=== PATIENT | female | born 1985 ===

== ENCOUNTER 2018-04-27 16:55 | Emergency (ER) | payer SELFPAY ==
[2018-04-27 16:56] VITALS: BMI 24.1
[2018-04-27 17:01] VITALS: TEMP 98.2
[2018-04-27] MEDS ORDERED: Sodium Chloride 0.9% 1,000 ML IV ONE (17:20)
[2018-04-27] MEDS ORDERED: Iohexol 240 (50 ml) PO ONE (17:21)
--- NOTE | 2018-04-27 17:24 | C.PDOC ---
History Of Present Illness 32 y/o female comes in complaining of lower abdominal discomfort for the last week with moderate pain x2 days that radiates to lower back. Patient does not know if she is . Patient has a history of colon cancer 2012 with colon resection, no radiation. Patient denies any other symptoms. Time Seen by Provider: 04/27/18 17:11 Chief Complaint (Nursing): Abdominal Pain History Per: Patient History/Exam Limitations: no limitations Onset/Duration Of Symptoms: Days Current Symptoms Are (Timing): Still Present Past Medical History Reviewed: Historical Data, Nursing Documentation, Vital Signs Vital Signs: Last Vital Signs Temp 98.2 F 04/27/18 16:59 Pulse 67 04/27/18 16:59 Resp 18 04/27/18 16:59 BP 98/62 L 04/27/18 16:59 Pulse Ox 100 04/27/18 16:59 - Medical History PMH: Hypercholesterolemia Denies: Chronic Kidney Disease - [facility] Procedures CLOSED ENDOSCOPIC BIOPSY OF LARGE INTESTINE (03/04/14) Family History: States: No Known Family Hx - Social History Hx Alcohol Use: No Hx Substance Use: No Review Of Systems Except As Marked, All Systems Reviewed And Found Negative. Constitutional: Negative for: Fever, Chills Cardiovascular: Negative for: Chest Pain Respiratory: Negative for: Shortness of Breath Gastrointestinal: Positive for: Other (Abdominal discomfort radiating to lower back). Negative for: Vomiting Skin: Negative for: Rash Physical Exam - Physical Exam Appears: Non-toxic, No Acute Distress Skin: Warm, Dry Head: Atraumatic, Normacephalic Eye(s): bilateral: Normal Inspection Oral Mucosa: Moist Neck: Supple Chest: Symmetrical Cardiovascular: Rhythm Regular, No Murmur Respiratory: Normal Breath Sounds, No Rales, No Rhonchi, No Wheezing Gastrointestinal/Abdominal: Soft, No Tenderness, Other (Midline surgical scar) Extremity: Bilateral: Normal Color And Temperature, Normal ROM Neurological/Psych: Oriented x3, Normal Speech ED Course And Treatment - Laboratory Results Result Diagrams: 04/27/18 17:34 04/27/18 17:34 Lab Interpretation: Normal (ua neg.) Urine POC: Negative O2 Sat by Pulse Oximetry: 100 (RA) Pulse Ox Interpretation: Normal Reevaluation Time: 20:00 Reassessment Condition: Improved Medical Decision Making Medical Decision Making: Plan: --Abd/Pel CT --Bloodwork --UA --Omnipaque PO --IV fluids --Toradol 30 mg IV acute on chronic constipation no s/s of recurrent colon CA Disposition Doctor Will See Patient In The: Office Counseled Patient/Family Regarding: Studies Performed, Diagnosis - Disposition Disposition: HOME/ ROUTINE Disposition Time: 20:00 Condition: GOOD Forms: [facility] (Salvadorean) - Clinical Impression Clinical Impression: Colicky abdominal pain - Scribe Statement The provider has reviewed the documentation as recorded by the [place] Provider Attestation: All medical record entries made by the Adrianaibrobel were at my direction and personally dictated by me. I have reviewed the chart and agree that the record accurately reflects my personal performance of the history, physical exam, medical decision making, and the department course for this patient. I have also personally directed, reviewed, and agree with the discharge instructions and di sposition.
[2018-04-27 17:25] LABS: SQUAMOUS EPITHIAL 1 /hpf (0-5); URINE BILIRUBIN NEGATIVE (NEGATIVE); URINE BLOOD NEGATIVE (NEGATIVE); URINE CLARITY Clear (Clear); URINE COLOR Straw (YELLOW); URINE GLUCOSE (UA) NORMAL (Normal); URINE LEUKOCYTE ESTERASE NEG Leu/uL (Negative); URINE PROTEIN NEGATIVE (NEGATIVE); URINE UROBILINOGEN NORMAL mg/dL (0.2-1.0)
[2018-04-27 17:29] LABS: HCG,QUALITATIVE URINE NEGATIVE (NEGATIVE)
[2018-04-27] MEDS ORDERED: Iohexol 240 (50 ml) ONE (17:34)
[2018-04-27] MEDS ORDERED: Sodium Chloride 0.9% 1,000 ML ONE (17:35)
[2018-04-27 17:37] LABS: BASO # 0.1 K/uL (0.0-0.2); BASO % 0.6 % (0.0-2.0); EOS # 0.2 K/uL (0.0-0.7); EOS % 1.6 % (0.0-4.0); HEMOGLOBIN 14.1 g/dL (11.0-16.0); LYMPH # 3.4 K/uL (1.0-4.3); LYMPH % 31.4 % (20.0-40.0); MEAN CELL VOLUME 90.7 fL (81.0-99.0); MEAN CORPUSCULAR HEMOGLOBIN 31.4 pg (27.0-31.0); MEAN CORPUSCULAR HGB CONC 34.6 g/dL (33.0-37.0); MEAN PLATELET VOLUME 9.4 fL (7.2-11.7); MONO # 0.6 K/uL (0.0-0.8); MONO % 5.6 % (0.0-10.0); NEUT # 6.7 K/uL (1.8-7.0); NEUT % 60.8 % (50.0-75.0); RBC 4.49 Mil/uL (3.80-5.20); RED CELL DISTRIBUTION WIDTH 12.6 % (11.5-14.5); WHITE BLOOD COUNT 10.9 K/uL (4.8-10.8)
[2018-04-27 18:01] LABS: ALB/GLOB RATIO 1.7 (1.0-2.1); ALBUMIN 4.8 g/dL (3.5-5.0); ALT/SGPT 37 U/L (9-52); AST/SGOT 33 U/L (14-36); BLOOD UREA NITROGEN 10 mg/dL (7-17); GFR NON-AFRICAN AMERICAN > 60; LIPASE 64 U/L (23-300)
[2018-04-27] MEDS ORDERED: Iodixanol 320 MG/ML 100 ML BOTTLE IV ONE (18:22)
[2018-04-27 20:15] VITALS: BP 100/60; PULSE 70; RESP 14; O2SAT 98
--- NOTE | 2018-04-27 21:50 | CT ---
Date of service: 04/27/2018 PROCEDURE: CT Abdomen and Pelvis with contrast HISTORY: lower abdominal pain x 1 wk, h/o colon CA, neg scope 2015 COMPARISON: 12/27/2015. TECHNIQUE: CT scan of the abdomen and pelvis was performed after administration of intravenous contrast. Oral contrast was administered. Coronal and sagittal reformatted images were obtained. Contrast dose: 100 mL Visipaque 320 Radiation dose: Total exam DLP = 866.26 mGy-cm. This CT exam was performed using one or more of the following dose reduction techniques: Automated exposure control, adjustment of the mA and/or kV according to patient size, and/or use of iterative reconstruction technique. FINDINGS: LOWER THORAX: There is dependent atelectasis in the lung bases. LIVER: Normal in size with homogeneous enhancement. Fatty liver. No gross lesion or ductal dilatation. GALLBLADDER AND BILE DUCTS: Well distended. No calcified gallstones, wall thickening or pericholecystic fluid. PANCREAS: Normal in size with homogeneous enhancement. No gross lesion or ductal dilatation. SPLEEN: Normal in size and appearance. ADRENALS: No discrete nodule. KIDNEYS AND URETERS: Normal in size with homogeneous enhancement. No hydronephrosis. No solid mass. VASCULATURE: No aortic aneurysm. BOWEL: The small bowel loops are normal in caliber. Postsurgical changes in the cecum with partial right colon resection. There is large amount of stool in the transverse colon. No bowel obstruction. No bowel wall thickening or obstruction. APPENDIX: Normal appendix. PERITONEUM: No free fluid. No free air. LYMPH NODES: No enlarged lymph nodes. BLADDER: Well distended and normal in appearance. REPRODUCTIVE: The uterus is normal in size. BONES: No acute fracture. Within normal limits for the patient's age. OTHER FINDINGS: None. IMPRESSION: No acute abdominal or pelvic abnormality. Postsurgical changes in the cecum with partial right hemicolon resection. Large amount of stool in the transverse colon. Nonobstructive bowel-gas pattern. A preliminary report was provided by [employer].
== END 2018-04-27 20:16 | disposition home or self-care (01) ==
LOC: C.ER 16:55
DX: R10.84 Generalized abdominal pain (principal)
CPT/HCPCS: 74177; 80053; 81001; 83690; 84703; 85025; 96361; 96374; 99284; J1885; J7030; Q9966; Q9967

== ENCOUNTER 2018-06-07 11:35 | Emergency (ER) | payer OTHER ==
[2018-06-07 11:36] VITALS: BMI 24.1
[2018-06-07 12:04] VITALS: TEMP 98.4
[2018-06-07] MEDS ORDERED: Lidocaine 5% Patch TD STA (12:36)
[2018-06-07] MEDS ORDERED: Lidocaine 5% Patch TD ONE (12:58)
--- NOTE | 2018-06-07 13:32 | C.PDOC ---
History Of Present Illness 32 y/o female c/o left upper back pain x 3 days after lifting her 8 y/o 55 lb daughter to put her to bed, pt tasking ibuprofen 200 mg by mouth qid with no relief. Time Seen by Provider: 06/07/18 12:07 Chief Complaint (Nursing): Back Pain History Per: Patient History/Exam Limitations: no limitations Onset/Duration Of Symptoms: Days (3) Quality Of Discomfort: "Pain" (left upper back ) Associated Symptoms: denies: New Weakness, New Numbness Recent travel outside of the [place]: No Additional History Per: Patient Past Medical History Reviewed: Historical Data, Nursing Documentation, Vital Signs Vital Signs: Last Vital Signs Temp 98.4 F 06/07/18 12:00 Pulse 69 06/07/18 12:00 Resp 20 06/07/18 12:00 BP 105/85 06/07/18 12:00 Pulse Ox 99 06/07/18 12:00 - Medical History PMH: Hypercholesterolemia Denies: Chronic Kidney Disease Surgical History: No Surg Hx - [facility] Procedures CLOSED ENDOSCOPIC BIOPSY OF LARGE INTESTINE (03/04/14) Family History: States: Unknown Family Hx - Social History Hx Alcohol Use: No Hx Substance Use: No - Immunization History Hx Tetanus Toxoid Vaccination: No Hx Influenza Vaccination: No Hx Pneumococcal Vaccination: No Review Of Systems Constitutional: Negative for: Fever, Chills, Weakness Respiratory: Positive for: Pleuritic Pain (with breathing ). Negative for: Shortness of Breath Neurological: Negative for: Other (saddle anesthesia ) Physical Exam - Physical Exam Appears: Non-toxic, Other (uncomfortable ) Skin: No Rash Head: Atraumatic, Normacephalic Eye(s): bilateral: Normal Inspection, PERRL Oral Mucosa: Moist Neck: Supple Chest: No Tenderness Cardiovascular: Rhythm Regular Respiratory: No Rales, No Rhonchi, No Wheezing Gastrointestinal/Abdominal: Soft, No Tenderness, No Distention, No Guarding, No Rebound Back: No Vertebral Tenderness (midline cervical or vetebral tenderness ), Other (tenderness to left trapezius and left rhomboid ) Extremity: Normal ROM, No Tenderness, No Swelling Neurological/Psych: Oriented x3, Normal Cognition, Normal Motor, Other (normal strength ) ED Course And Treatment O2 Sat by Pulse Oximetry: 99 (on RA) Pulse Ox Interpretation: Normal Medical Decision Making Medical Decision Making: Plan: POC Urine Tylenol 650mg PO Toradol 30mg IM Lidoderm 1ea TD pt with decreased, not resolved pain, after medications, d/c home with nsaids and muscle relaxant. Disposition Counseled Patient/Family Regarding: Diagnosis, Need For Followup, Rx Given - Disposition Referrals: [facility] [Outside] Disposition: HOME/ ROUTINE Disposition Time: 13:32 Condition: IMPROVED Additional Instructions: Qutese el parche en 12 horas. [place] ibuprofeno con comida y relajante muscular al acostarse. Seguimiento en clnica mdica. Compresas tibias en la oskar afectada. Take patch off in 12 hours. Take ibuprofen with food and muscle relaxant at bedtime,. Follow up in medical clinic. Warm compresses to affected area. Prescriptions: Cyclobenzaprine [Cyclobenzaprine HCl] 10 mg PO Q8 #9 tab Ibuprofen [Motrin] 600 mg PO TID #30 tab Instructions: Upper Back Pain (DC) Forms: Gen Discharge Inst Uruguayan, [employer] (Uruguayan) Print Language: INDONESIAN - Clinical Impression Clinical Impression: Thoracic back pain - PA / GLOBAL CHIEF EXPERIENCE OFFICER / Resident Statement MD/DO has examined the patient and agrees with the treatment plan. - Scribe Statement The provider has reviewed the documentation as recorded by the [facility] [place] All medical record entries made by the Adrianaibrobel were at my direction and personally dictated by me. I have reviewed the chart and agree that the record accurately reflects my personal performance of the history, physical exam, medical decision making, and the department course for this patient. I have also personally directed, reviewed, and agree with the discharge instructions and disposition.
[2018-06-07 13:50] VITALS: BP 107/76; PULSE 61; RESP 17
[2018-06-07 15:20] VITALS: O2SAT 99
== END 2018-06-07 13:50 | disposition home or self-care (01) ==
LOC: C.ER 11:35
DX: M54.6 Pain in thoracic spine (principal)
CPT/HCPCS: 81025; 96372; 99284; J1885

== ENCOUNTER 2018-07-04 09:11 | Outpatient (CLI) | payer OTHER | END 2018-07-04 09:12 | disposition home or self-care (01) | LOC: C.MAMMO 09:11 | DX: N64.59 Other signs and symptoms in breast (principal) ==